=== PATIENT | female | born 1975 | race Caucasian/White ===

== ENCOUNTER → 2021-01-10 | Outpatient (CLI) | payer OTHER | LOC: KOH-I 09:00 | DX: M79.672 Pain in left foot (principal); M79.671 Pain in right foot | CPT/HCPCS: 73630 ==

== ENCOUNTER 2021-05-28 12:54 | Emergency (ER) | payer OTHER ==
[~2021-05-28] VITALS: Ht 160 cm; Wt 117.9 kg
== END 2021-05-28 16:49 | disposition home or self-care (01) ==
LOC: ER1 12:54
DX: U07.1 COVID-19 (principal); Z23 Encounter for immunization; I10 Essential (primary) hypertension; F41.9 Anxiety disorder, unspecified
CPT/HCPCS: 99283; M0245

== ENCOUNTER → 2021-08-06 | Outpatient (CLI) | payer OTHER | LOC: HEART 5 11:00 | DX: R07.9 Chest pain, unspecified (principal) ==

== ENCOUNTER → 2021-09-16 | Outpatient (CLI) | payer OTHER | LOC: RAD 10:35 | DX: R09.89 Other specified symptoms and signs involving the circulatory and respiratory systems (principal) | CPT/HCPCS: 70220 ==

== ENCOUNTER → 2021-10-22 | Outpatient (CLI) | payer OTHER | LOC: MRI 12:52 | DX: I10 Essential (primary) hypertension (principal); Q06.8 Other specified congenital malformations of spinal cord | CPT/HCPCS: 36415; 70553; 82565; 84520; A9577 ==